=== PATIENT | male | born 1955 | race Caucasian/White ===

== ENCOUNTER 2016-12-09 06:00 | Inpatient (IN) | payer BC ==
[2016-12-04 10:13] LABS: ASCORBIC ACID (UR NOT ORDER) NEG (NEG); BILIRUBIN, URINE NEGATIVE (NEG); KETONE, URINE NEGATIVE (NEG); LEUKOCYTE ESTERASE(NOT OR NEG (NEG); WBC (NOT ORDERED) (RFLEX) < 1 (0-5)
[2016-12-04 10:22] LABS: % IRON SAT 23 % (20-50); A/G RATIO 0.9 (0.7-1.9); ALBUMIN 3.6 G/DL (3.5-5.0); ALKALINE PHOSPHATASE 79 U/L (45-117); CALCIUM, SERUM 9.1 MG/DL (8.5-10.4); CHLORIDE, SERUM 107 MMOL/L (96-112); CO2 (CARBON DIOXIDE) 26 MMOL/L (24-34); CREATININE 1.07 MG/DL (0.70-1.30); GFR AFRICAN AMERICAN 86 ML/MIN (>=60); GFR NON AFRICAN AMERICAN 75 ML/MIN (>=60); GLOBULIN 3.8 G/DL (2.5-4.1); GLUCOSE, SERUM 106 MG/DL (60-99); IRON BINDING CAPACITY 290 MCG/DL (250-450); IRON, SERUM 67 MCG/DL (35-150); POTASSIUM, SERUM 3.8 MMOL/L (3.5-5.3); SGOT(AST) 26 U/L (5-40); SGPT(ALT) 47 U/L (5-65); SODIUM, SERUM 139 MMOL/L (135-148); TOTAL BILIRUBIN 0.3 MG/DL (0-1.2); TOTAL PROTEIN 7.4 G/DL (6.0-8.5)
[2016-12-04 10:23] LABS: BUN (BLOOD UREA NITROGEN) 14 MG/DL (6-23)
--- NOTE | ~2016-12-09 | HOLTER ---
Holter Monitor [facility] [address] [facility] [place] [address] NAME: MERYL MYERS JR : 55 STATUS : DIS IN PAT#: [id number] AGE: 61 ADM/REG DATE : 12/09/16 MR#: [id number] REPORT SERV DATE: 12/21/16 DICTATED BY: CEM WILLIS DATE: 12/21/16 REPORT STATUS : Cancelled TRANSCRIBED BY: MODL DATE: 12/21/16 48-HOUR HOLTER MONITOR REPORT RESPONSIBLE PHYSICIAN: Farrukh Capellan M.D. INDICATIONS: A 61-year-old male with coronary artery disease. RECORDING QUALITY: Overall quality of the study is good. RHYTHM: Rhythm is sinus, which varies from 69 to 113 beats per minute with an average heart rate of 87 beats per minute. VENTRICULAR ARRHYTHMIA: There are rare PVCs. SUPRAVENTRICULAR ARRHYTHMIA: There are rare PACs. SYMPTOMS: No diary submitted. CONCLUSION: No significant symptoms noted. No significant dysrhythmia found. Please see attached worksheet for further details. Definitions for premature beat frequency Approximately Rare <100 <0.1 % Occasional 100-1500 0.1 - 1.5 % Frequent >1500 >1.5 % SILVESTRE/SHANE Cem Willis M.D. / [id number]
--- NOTE | ~2016-12-09 | CN ---
Consultation Report [facility] [address] [place]. [address] NAME: MERYL RAMOS JR : 55 STATUS : ADM IN PAT#: [id number] AGE: 61 ADM/REG DATE : 12/09/16 MR#: [id number] REPORT SERV DATE: 12/13/16 DICTATED BY: SABRA GOODE IV DATE: 12/13/16 REPORT STATUS : Draft TRANSCRIBED BY: SHANE DATE: 12/13/16 PULMONARY CONSULTATION. DATE OF CONSULTATION: 12/13/2016 REQUESTING PHYSICIAN: Farrukh Capellan M.D. REASON FOR REQUEST: Persistent postoperative hypoxemia. HISTORY OF PRESENT ILLNESS: History was obtained the records and from the patient. Mr. Ramos is a 61-year-old male, with a history of obstructive sleep apnea, obesity, hypertension, elevated cholesterol, and recently diagnosed coronary artery disease, who is status post robotic single vessel coronary bypass grafting, HARRIS to the LAD, with postoperative hypoxemia. The patient was undergoing preoperative evaluation for cervical spinal surgery. He underwent a nuclear medical scan which was abnormal, with subsequent catheterization demonstrating a 90% mid LAD lesion, and was felt to be a poor candidate for stenting. The patient underwent robotic single vessel coronary bypass grafting with HARRIS. Postoperatively, the patient has been persistently hypoxemic with chest radiograph demonstrating left greater than right basilar atelectasis/infiltrates. He has been slowly weaned on supplemental oxygen postoperatively 100%, now down to 60%, with some clinical improvement. The patient had no symptoms of a lower respiratory infection prior to presentation to include purulent sputum production, fevers, chills, sweats, or hemoptysis. He does currently have a cough productive of slightly yellowish phlegm. He was not on bronchitis medication nor is he on supplemental oxygen preoperatively. The patient carries a diagnosis of obstructive sleep apnea of unclear severity. He underwent UPPP surgery in the past. He reportedly does snore intermittently which is positional. He denies nonrestorative sleep with sedentary hypersomnolence. He never underwent a post surgical sleep study. PULMONARY HISTORY: Remarkable for no history of childhood asthma, known adult obstructive lung disease or previous pneumonia. He is a lifelong nonsmoker with no significant secondary smoke exposure. He has not received immunizations. PAST MEDICAL HISTORY: 1. Obstructive sleep apnea. 2. Obesity. 3. Hypertension. 4. Elevated cholesterol. 5. Coronary disease status post surgery. PAST SURGICAL HISTORY: 1. Left knee arthroscopy with meniscal surgery. 2. UPPP surgery. Consultation Report [place] [address] [place]. [address] NAME: MERYL RAMOS JR : 55 STATUS : ADM IN PAT#: [id number] AGE: 61 ADM/REG DATE : 12/09/16 MR#: [id number] REPORT SERV DATE: 12/13/16 DICTATED BY: SABRA GOODE IV DATE: 12/13/16 REPORT STATUS : Draft TRANSCRIBED BY: SHANE DATE: 12/13/16 3. TURP. 4. Robotic HARRIS to the LAD. ALLERGIES: NO KNOWN DRUG ALLERGIES. CURRENT MEDICATIONS: The patient is on Bactroban in his nose twice a day, Cordarone 200 mg at bedtime, Elavil 100 mg at bedtime, aspirin 81 mg daily, Lasix 40 mg daily, Lipitor 40 mg daily, Lopressor 25 mg twice a day, MiraLAX one daily, Orazinc 220 mg daily, Pepcid 20 mg twice a day, Plavix 75 mg daily, Proventil q.4 hours while awake and q.2 hours as needed, Senokot two twice a day, and vitamin C. SOCIAL HISTORY: Remarkable for no tobacco or illicit drug use. He has rare social alcohol use. He is and has two children. FAMILY HISTORY: Remarkable for father, who had an unspecified valvular disease. Mother with diabetes and breast cancer. A sister who had pulmonary embolism. REVIEW OF SYSTEMS: A 10 systems were reviewed and pertinent positives as noted above. PHYSICAL EXAMINATION: GENERAL: This is a morbidly obese, late middle-aged male, in no current distress. He is wearing a Vapotherm. VITAL SIGNS: Temperature is 96.8, pulse is 90, respiratory rate is 16, saturation 99% on the Vapotherm, and blood pressure 138/74. HEENT: The patient is normocephalic and atraumatic. Extraocular movements are intact. Pupils react to light. Sclerae and conjunctivae normal. He has a nasal cannula in place. He has a Mallampati 3 airway with postsurgical changes to the soft palate consistent with UPPP surgery. There is narrowing of the posterior pharyngeal space without any other oral lesions. NECK: Without any palpable lymphadenopathy or thyromegaly. He has a dressing over his right internal jugular site. CHEST: The patient has decreased breath sounds symmetrically. There are some basilar inspiratory crackles. There is no wheezes rhonchi or egophony. He has an incision site on his left side. CARDIOVASCULAR: Jugular venous pulsations are difficult to elicit. He has 1+ carotid upstrokes. No obvious bruit. He has a distant regular S1 and S2 with no clear murmur, S3. Peripheral pulses are slightly diminished. ABDOMEN: Morbidly obese. Soft. There are hypoactive bowel sounds. There is no palpable hepatosplenomegaly or mass. EXTREMITIES: Demonstrate no cyanosis clubbing or palpable cords. He has edema predominantly in his hands. NEUROLOGIC: The patient is able to move all extremities. Strength is 5/5 and sensation is intact to light touch. LABORATORY AND DIAGNOSTIC DATA: Chest x-ray demonstrates even duration and elevation of the Consultation Report [place] [address] [facility] [address] [place]. [address] NAME: MERYL RAMOS : 55 STATUS : ADM IN [facility]#: [id number] AGE: 61 ADM/REG DATE : 12/09/16 MR#: [id number] REPORT SERV DATE: 12/13/16 DICTATED BY: SABRA GOODE IV DATE: 12/13/16 REPORT STATUS : Draft TRANSCRIBED BY: SHANE DATE: 12/13/16 anterior and mid right hemidiaphragm which is old. He has left greater than right basilar infiltrate or atelectasis which is persisted postoperatively. He has some pleural thickening, apical and laterally likely from subcostal fat which is also old. CBC: Hemoglobin 12.1 hematocrit 35.2, platelet count was 225,000, and white blood cell count 11.1. Chemistry; sodium 142, potassium 3.9, chloride 104, bicarb 26, BUN 21, creatinine 0.77, glucose of 99. He had a hemoglobin A1c preoperatively that was 6.3. Blood gas was pH 7.35, pCO2 of 50, and PO2 of 64. ASSESSMENT/PLAN: 1. Respiratory. The patient has significant atelectasis infiltrate at the left greater than right base, it is the likely cause for his hypoxemia. This is likely just postoperative atelectasis contributed to by his obesity. Pulmonary toilet with incentive spirometry, and EzPAP with albuterol, oxygen to be titrated to maintain saturation at 90% to 94% range. We will decrease to 55% now continued to wean. The patient likely saw the component of obstructive sleep apnea. I would recommend an overnight oximetry before discharge. We did discuss the adverse cardiopulmonary effects of untreated sleep apnea. PCO2 is elevated and likely secondary obesity and hypoventilation syndrome, that will be followed. 2. Infectious disease. Sputum will be sent for Gram stain, culture, procalcitonin level be added to blood in the lab. I would not provide empiric antibiotics at this time. Pneumovax at the time of discharge. 3. Endocrinologic. Hemoglobin A1c was elevated preoperatively. clinical staff educator will be asked to come by for the borderline diabetes mellitus. With the hypercapnia, thyroid functions will be obtained. Thank you for consulting us. We will follow patient with you. NM/MODL Sabra Goode IV, M.D. / [id number] CC: Farrukh Capellan Jr., M.D.
--- NOTE | ~2016-12-09 | PUL ---
[id number] [place]. [address] NAME: MERYL MYERS JR : 55 STATUS : DIS IN PAT#: [id number] AGE: 61 ADM/REG DATE : 12/09/16 MR#: [id number] REPORT SERV DATE: 12/18/16 DICTATED BY: BRIEN DUTTON DATE: 12/18/16 REPORT STATUS : Draft TRANSCRIBED BY: MODL DATE: 12/18/16 PULMONARY FUNCTION TEST OVERNIGHT OXIMETRY REPORT START DATE OF TESTIN12/14/2016. END DATE OF TESTIN12/15/2016. COMMENTS: Testing conducted with the patient breathing supplemental oxygen at an FiO2 of 40%. RESULTS: Total valid sampling time 6 hours 6 minutes and 28 seconds. Total time with an oxygen saturation less than 88%, 3 hours and 54 minutes. Oxygen desaturation event index 3.9. IMPRESSION: There was no significant desaturation during this study conducted while the patient was breathing supplemental oxygen at an FiO2 of 40%. The oxygen desaturation index was not suspicious for possible obstructive sleep apnea. PS/MODL Brien Dutton M.D. / [id number] CC: Sydni Montgomery Jr., ANDERS EUGENE
--- NOTE | ~2016-12-09 | DS ---
Discharge Summary [facility] [address] [place]. [address] NAME: MERYL MYERS JR : 55 STATUS : DIS IN PAT#: [id number] AGE: 61 ADM/REG DATE : 12/09/16 MR#: [id number] REPORT SERV DATE: 12/26/16 DICTATED BY: ANGELA CAPELLAN JR. DATE: 12/25/16 REPORT STATUS : Draft TRANSCRIBED BY: SHANE DATE: 12/25/16 Data Collection from hospitalization DISCHARGE DIAGNOSES: 1. Coronary artery disease, status post coronary artery bypass grafting. 2. Hypertension. 3. Hypercholesterolemia. 4. Type 2 diabetes mellitus. 5. Morbid obesity. CONSULTATIONS: 1. Tate Goode M.D. 2. Catalino Morton M.D. PROCEDURES PERFORMED: Elective robotic assisted MIDCAB, left internal mammary artery to the left anterior descending, transesophageal echocardiogram, and intercostal nerve block on 12/09/2016. MEDICATIONS: Elavil 100 mg at bedtime, vitamin C 1000 mg daily, aspirin 81 mg daily, Lipitor 40 mg at bedtime, Plavix 75 mg daily, Lasix 40 mg daily, Prinivil 10 mg daily, Lopressor 12.5 mg twice a day, Percocet 5/325 one to two tablets every four hours as needed, and Klor- Con 20 mEq daily. CONDITION ON DISCHARGE: Stable. DISPOSITION: The patient was discharged home on an 1800-calorie cardiac/diabetic diet with activities as instructed. He will follow up with Dr. Shawn Townsend on 12/31/[address] Tate Goode in 3-4 weeks following discharge. He will follow up with md on 01/11/[address] Kevin Martínez on 01/06/2017. HOSPITAL COURSE: This is a 61-year-old man who has been complaining of numbness in the upper extremities related to cervical spine issues. He was being evaluated for a cervical spine surgery when he had an abnormal EKG. He also complained of significant dyspnea with any type of exercise. A nuclear stress test was positive which led to a cardiac catheterization demonstrating significant disease in the left anterior descending artery at the division of the first diagonal branch. There was also some mild disease in the right coronary artery. It was felt that he would benefit from HARRIS to the LAD prior to any surgical intervention for his cervical spine. Treatment options were discussed, and it was elected to proceed with surgical intervention. He was admitted to the hospital at this time for further evaluation and treatment. Upon admission, he was taken to the operating room where he underwent the above-mentioned procedure. He tolerated this well. There were no complications. On postop day #1, he was very sore, he was still on O2. He was seen by Dr. Catalino Morton. He was off pressors. He has been extubated. He was receiving high flow O2. He had no chest pain. On the , he had some shortness of breath and mild chest pain. He had been on increased O2 overnight. He had decreased breath sounds bilaterally. Blood pressure and heart rate were okay. We were going to increase his diuretic with IV Bumex. He was up sitting in a chair. O2 was Discharge Summary [address] [address] NAME: LUCIAMERYL JR : 55 STATUS : DIS IN PAT#: [id number] AGE: 61 ADM/REG DATE : 12/09/16 MR#: [id number] REPORT SERV DATE: 12/26/16 DICTATED BY: ANGELA CAPELLAN JR. DATE: 12/25/16 REPORT STATUS : Draft TRANSCRIBED BY: MODRachana DATE: 12/25/16 being weaned. On the , his temperature was 99.6. His wounds were clean, dry, and intact. He was on Vapotherm. He had no chest pain. He did have a white count of 12.6. Amiodarone was stopped. Medical therapy continued. On 12/13/2016, he continued to progress. He was seen by Dr. Tate Goode regarding persistent postoperative hypoxemia. He has no symptoms of a lower respiratory infection prior to presentation. He does have a productive cough of slightly yellowish phlegm. He had not been on bronchitis medication nor is he on supplemental oxygen preoperatively. He has been slowly weaned on supplemental oxygen postoperatively 100%, now down to 50% with some clinical improvement. Chest x-ray demonstrated even duration and elevation of the anterior and mid right hemidiaphragm which was old. He had left greater than right basilar infiltrate or atelectasis which persisted postoperatively. He had some pleural thickening, apical and laterally, likely from subcostal fast which was old. Preoperatively, his hemoglobin A1c was 6.3. The patient had significant atelectasis infiltrate at the left greater than right base which was likely the cause for his hypoxemia. This was likely just postoperative atelectasis contributed to by his obesity. Pulmonary toilet with incentive spirometry and EZ PAP with albuterol and oxygen to be titrated to maintain saturation at 90- 94%. It was felt that the patient likely saw a component of obstructive sleep apnea. An overnight oximetry study was recommended. We discussed the adverse cardiopulmonary effects of untreated sleep apnea. PCO2 was elevated and likely secondary to obesity and hypoventilation syndrome. This was going to be followed. Sputum was sent for Gram stain, culture, and procalcitonin level was going to be added to blood in the lab. We were not going to start empiric antibiotics at this time. Pneumovax will be given at the time of discharge. It was felt that he had borderline diabetes mellitus. On 12/14/2016, he still had some shortness of breath but O2 requirement had decreased. He had crackles in his left lung base. Diuresis was increased. He denied any dyspnea at this time. He was ambulating in the halls. He was anxious to go home. He had no evidence of infection. White count was 10.7. Procalcitonin level was 0.08. He was evaluated by Physical Therapy. The next day, a dose of IV Bumex was given, then he was placed on oral Lasix. AMY inhibitor was added back. Discharge planning was performed. On 12/16/2016, he was afebrile; his wounds were clean, dry, and intact; he said he felt great. He was found to have nonsustained ventricular tachycardia on telemetry. Discharge instructions were given. Due to his improved and stable condition, he was discharged home with the above-stated instructions. Information collected by: Lorena Yeager I submit the above information as my discharge summary. TG/MODL Angela Capellan Jr., M.D. / [id number] CC: Angela Capellan Jr., M.D. [facility] Discharge Summary [address] [address] NAME: LUCIAMERYL JR : 55 STATUS : DIS IN PAT#: [id number] AGE: 61 ADM/REG DATE : 12/09/16 MR#: [id number] REPORT SERV DATE: 12/26/16 DICTATED BY: ANGELA CAPELLAN JR. DATE: 12/25/16 REPORT STATUS : Draft TRANSCRIBED BY: MODL DATE: 12/25/16 Dr. Aashish Morton M.D.
--- NOTE | ~2016-12-09 | OP ---
Record Of Operation [facility] [address] [place]. [address] NAME: MERYL MYERS JR : 55 STATUS : ADM IN PAT#: [id number] AGE: 61 ADM/REG DATE : 12/09/16 MR#: [id number] REPORT SERV DATE: 12/09/16 DICTATED BY: ANGELA CAPELLAN JR. DATE: 12/09/16 REPORT STATUS : Draft TRANSCRIBED BY: MODL DATE: 12/09/16 DATE OF PROCEDURE: 12/09/2016 PREOPERATIVE DIAGNOSES: Coronary artery disease, angina, cervical spinal stenosis, increased body mass index, and hypertension. POSTOPERATIVE DIAGNOSES: Coronary artery disease, angina, cervical spinal stenosis, increased body mass index, and hypertension. NAME OF OPERATION: Elective robotic assisted MIDCAB, left internal mammary artery to the left anterior descending, transesophageal echocardiogram, intercostal nerve block. SURGEON: Angela Capellan Jr., M.D. LOGGING RAFTER LABORER: Won Cassidy. RESIDENT SURGEON: Dr. Jose G Canas. ANESTHESIOLOGIST: Jesse Purvis. FINDINGS: On transesophageal echocardiogram, the patient was noted to have central aortic insufficiency. The leaflets were normal and had no sclerosis. The aortic insufficiency appeared at least mild and possibly moderate. The left ventricle is not dilated. There was mild mitral regurgitation. There is normal left ventricular function. His pulmonary artery pressures were elevated in the 50s which was felt likely secondary to his obesity. Exposure was difficult during the case secondary to obesity. There was little room to work in the chest even with insufflation. We were able to find the left internal mammary artery and dissected out as well as the left anterior descending artery. There was significant amount of epicardial fat on the heart but we were able to locate the vessel that matched size-dawson in location with the left anterior descending artery. Post bypass, the Doppler signals were excellent. DETAILS OF OPERATION: After adequate general anesthesia, the patient was intubated with a left-sided double-lumen endotracheal tube. A transesophageal echocardiogram was performed with the above findings noted. The patient was then positioned in the supine position with the left chest elevated. His neck, chest, abdomen, and extremities were prepped and draped in a routine sterile fashion. A single mid lateral left chest trocar incision was made followed by introducing of the trocar into the chest cavity. The camera was introduced. Visualization was limited secondary to his obesity and the lack of space within the chest cavity. Even with insufflating 10 cm of pressure, we had limited visualization. The heart was up against the chest wall. Two additional trocars were placed under direct visualization. The da Ro was docked, followed by placement of instruments under direct visualization. The left internal mammary artery was then dissected in the standard fashion. We had to move intercostal spaces with both the upper and the camera trocar just to be able to see from the upper part of the chest to the lower part of the chest. Pericardium was then opened where the vessel was identified. Again there was extensive amount of epicardial Record Of Operation [place] [id number] [facility] [place]. [address] NAME: LUCIAMERYL : 55 STATUS : ADM IN [facility]#: [id number] AGE: 61 ADM/REG DATE : 12/09/16 MR#: [id number] REPORT SERV DATE: 12/09/16 DICTATED BY: ANGELA CAPELLAN JR. DATE: 12/09/16 REPORT STATUS : Draft TRANSCRIBED BY: SHANE DATE: 12/09/16 fat, so it took us quite a while to locate the left anterior descending artery and be certain about it. The MIDCAB incision was then marked on the anterior chest wall. The instruments were then removed. Prior to that, the left internal mammary artery had been divided and secured next to the anastomotic site after giving heparin. The da Ro was then undocked. The MIDCAB incision was then made with the dissection carried down into the chest cavity. The rib shot dropper was placed. The stabilizing device was positioned on the left anterior descending artery. After a trial of ischemic preconditioning, the patient appeared to tolerate this well. We then performed an end-to-side anastomosis using 8-0 Deklene suture. The pedicle was secured with 6-0 Prolene sutures. Prior to releasing proximal occlusion, the left internal mammary artery had excellent Doppler signals. After releasing proximal occlusion, it still had excellent Doppler signals. Protamine was administered. A left-sided pleural chest tube was placed. Epicardial fat was placed over the graft. The MIDCAB incision was then closed in multiple layers using running Vicryl suture. The skin was closed with running monofilament suture. The trocar sites were closed in a similar fashion. Dermabond dressings were applied. The patient tolerated the procedure well and taken back to the recovery room in stable condition. ALEXEI/SHANE Angela Capellan Jr., M.D. / [id number] CC: Sydni Montgomery Jr., MD [facility]
[~2016-12-09 06:00] MED LIST: AMIT100 PO; HALF81 PO; LIPITOR40 PO; NORV10 PO; PRINZIDE1 TA1 PO
[2016-12-09 15:00] LABS: BE (BASE EXCESS) -0.7 MEQ/L (0 +/- 2.5); CARBOXYHEMOGLOBIN 0.3 % (0-3); HCO3 (ACTUAL BICARBONATE) 25.3 MEQ/L (23-27); HEMOBLOGIN CONTENT 13.5 G/DL (14-18); INSTRUMENT SERIAL # 11843; METHEMOGLOBIN 0.4 % (0-3); MODE SIMV; O2 CONTENT 17.8 VOL% (18-24); OPERATOR ID 13624; PCO2 (CO2 TENSION) 47 MMHG (35-45); PO2 (O2 TENSION) 79 MMHG (79-93); SAMPLE Arterial; TIDAL VOLUME 800 ML; pH 7.35 (7.37-7.43)
[2016-12-09 15:26] LABS: HEMOGLOBIN 12.3 g/dL (13.6-17.8); PLATELET COUNT 214 10/3/uL (150-400)
[2016-12-09 15:28] LABS: HEMATOCRIT 37.1 % (40.0-51.0)
[2016-12-09 15:32] LABS: INTERNATIONAL NORMAL RATI 1.2 UNITS (-); PARTIAL THROMBO TIME 29.2 SEC (22.5-37.2)
[2016-12-09 15:36] LABS: PROTIME (NOT ORD) 15.2 SEC (12.0-14.5)
[2016-12-09 15:38] LABS: CHLORIDE, SERUM 109 MMOL/L (96-112); CO2 (CARBON DIOXIDE) 25 MMOL/L (24-34); GFR AFRICAN AMERICAN 75 ML/MIN (>=60); GFR NON AFRICAN AMERICAN 65 ML/MIN (>=60); POTASSIUM, SERUM 4.5 MMOL/L (3.5-5.3); SODIUM, SERUM 144 MMOL/L (135-148)
[2016-12-09 15:39] LABS: BUN (BLOOD UREA NITROGEN) 18 MG/DL (6-23); CALCIUM, SERUM 7.9 MG/DL (8.5-10.4); GLUCOSE, SERUM 178 MG/DL (60-99)
[2016-12-09 15:41] LABS: BE (BASE EXCESS) -0.1 MEQ/L (0 +/- 2.5); CARBOXYHEMOGLOBIN 0.3 % (0-3); HCO3 (ACTUAL BICARBONATE) 25.5 MEQ/L (23-27); HEMOBLOGIN CONTENT 13.7 G/DL (14-18); INSTRUMENT SERIAL # 11843; METHEMOGLOBIN 0.6 % (0-3); MODE SIMV; O2 CONTENT 19.3 VOL% (18-24); OPERATOR ID 13624; PCO2 (CO2 TENSION) 45 MMHG (35-45); PO2 (O2 TENSION) 199 MMHG (79-93); SAMPLE Arterial; TIDAL VOLUME 900 ML; pH 7.37 (7.37-7.43)
[2016-12-09 18:16] LABS: BE (BASE EXCESS) -2.9 MEQ/L (0 +/- 2.5); CARBOXYHEMOGLOBIN 0.3 % (0-3); DEVICE HFNC; HCO3 (ACTUAL BICARBONATE) 23.2 MEQ/L (23-27); HEMOBLOGIN CONTENT 13.4 G/DL (14-18); INSTRUMENT SERIAL # 11843; METHEMOGLOBIN 0.5 % (0-3); O2 CONTENT 17.1 VOL% (18-24); OPERATOR ID 13624; PCO2 (CO2 TENSION) 45 MMHG (35-45); PO2 (O2 TENSION) 66 MMHG (79-93); SAMPLE Arterial; pH 7.33 (7.37-7.43)
[2016-12-09 22:12] LABS: HEMATOCRIT 36.1 % (40.0-51.0); HEMOGLOBIN 11.8 g/dL (13.6-17.8)
[2016-12-09 22:16] LABS: BUN (BLOOD UREA NITROGEN) 18 MG/DL (6-23); CALCIUM, SERUM 7.9 MG/DL (8.5-10.4); CHLORIDE, SERUM 110 MMOL/L (96-112); CO2 (CARBON DIOXIDE) 26 MMOL/L (24-34); CREATININE 1.05 MG/DL (0.70-1.30); GFR AFRICAN AMERICAN 88 ML/MIN (>=60); GFR NON AFRICAN AMERICAN 76 ML/MIN (>=60); POTASSIUM, SERUM 4.3 MMOL/L (3.5-5.3); SODIUM, SERUM 144 MMOL/L (135-148)
[2016-12-09 22:17] LABS: GLUCOSE, SERUM 88 MG/DL (60-99)
[2016-12-10 03:37] LABS: BASOPHILS 0.1 %; BASOPHILS ABSOLUTE 0.01 10/3/uL (0.0-0.16); EOSINOPHILS 0 %; HEMATOCRIT 37.1 % (40.0-51.0); HEMOGLOBIN 12.2 g/dL (13.6-17.8); IMMATURE GRANULOCYTES 0.3 %; IMMATURE GRANULOCYTES ABSOLUTE 0.05 10/3/uL (0.0-0.11); LYMPHOCYTES 5.6 %; LYMPHOCYTES ABSOLUTE 1.02 10/3/uL (0.67-4.30); MANUAL DIFF NO %; MEAN CORPUS HGB CONC 32.9 g/dL (32.0-36.0); MEAN CORPUSCULAR HEMOGLOB 29.1 pg (26.0-34.0); MEAN CORPUSCULAR VOLUME 88.5 fL (80-100); MEAN PLATELET VOLUME 9.4 fL (9.2-13.0); MONOCYTES 11.2 %; MONOCYTES ABSOLUTE 2.04 10/3/uL (0.21-1.20); NEUTROPHILS 82.8 %; NEUTROPHILS ABSOLUTE 15.02 10/3/uL (2.02-8.40); PLATELET COUNT 222 10/3/uL (150-400); RBC DISTRIBUTION WIDTH 14.2 % (12.0-16.0); RED CELL COUNT 4.19 10/6/uL (4.7-6.1); WHITE BLOOD CELLS 18.1 10/3/uL (4.5-10.5)
[2016-12-10 03:44] LABS: BUN (BLOOD UREA NITROGEN) 20 MG/DL (6-23); CALCIUM, SERUM 7.9 MG/DL (8.5-10.4); CHLORIDE, SERUM 110 MMOL/L (96-112); CO2 (CARBON DIOXIDE) 26 MMOL/L (24-34); CREATININE 1.04 MG/DL (0.70-1.30); GFR AFRICAN AMERICAN 89 ML/MIN (>=60); GFR NON AFRICAN AMERICAN 77 ML/MIN (>=60); POTASSIUM, SERUM 4.7 MMOL/L (3.5-5.3); SODIUM, SERUM 142 MMOL/L (135-148)
[2016-12-10 03:49] LABS: GLUCOSE, SERUM 122 MG/DL (60-99)
[2016-12-11 05:09] LABS: HEMATOCRIT 37.2 % (40.0-51.0); HEMOGLOBIN 12.2 g/dL (13.6-17.8); MEAN CORPUS HGB CONC 32.8 g/dL (32.0-36.0); MEAN CORPUSCULAR HEMOGLOB 29.5 pg (26.0-34.0); MEAN CORPUSCULAR VOLUME 90.1 fL (80-100); PLATELET COUNT 246 10/3/uL (150-400); RBC DISTRIBUTION WIDTH 14.8 % (12.0-16.0); RED CELL COUNT 4.13 10/6/uL (4.7-6.1); WHITE BLOOD CELLS 19.6 10/3/uL (4.5-10.5)
[2016-12-11 05:15] LABS: MANUAL DIFF YES %
[2016-12-11 05:17] LABS: CALCIUM, SERUM 8.3 MG/DL (8.5-10.4); CHLORIDE, SERUM 101 MMOL/L (96-112); CO2 (CARBON DIOXIDE) 27 MMOL/L (24-34); CREATININE 1.48 MG/DL (0.70-1.30); GFR AFRICAN AMERICAN 58 ML/MIN (>=60); GFR NON AFRICAN AMERICAN 50 ML/MIN (>=60); GLUCOSE, SERUM 136 MG/DL (60-99); POTASSIUM, SERUM 5.2 MMOL/L (3.5-5.3); SODIUM, SERUM 136 MMOL/L (135-148)
[2016-12-11 05:21] LABS: BE (BASE EXCESS) 0.3 MEQ/L (0 +/- 2.5); CARBOXYHEMOGLOBIN 0.3 % (0-3); DEVICE HFNC; HCO3 (ACTUAL BICARBONATE) 26.6 MEQ/L (23-27); HEMOBLOGIN CONTENT 12.7 G/DL (14-18); INSTRUMENT SERIAL # 11843; METHEMOGLOBIN 0.5 % (0-3); O2 CONTENT 16.4 VOL% (18-24); PCO2 (CO2 TENSION) 50 MMHG (35-45); PO2 (O2 TENSION) 64 MMHG (79-93); SAMPLE Arterial; pH 7.35 (7.37-7.43)
[2016-12-11 05:22] LABS: ALLENS TEST Pos
[2016-12-11 05:24] LABS: BUN (BLOOD UREA NITROGEN) 33 MG/DL (6-23)
[2016-12-11 06:05] LABS: BAND NEUTROPHILS 2 %; LYMPHOCYTES 10 %; LYMPHOCYTES ABSOLUTE (CALC) 1.96 10/3/uL (0.67-4.30); METAMYELOCYTES 1 %; MONOCYTES 12 %; MONOCYTES ABSOLUTE (CALC) 2.35 10/3/uL (0.21-1.20); NEUTROPHILS ABSOLUTE (CALC) 15.09 10/3/uL (2.02-8.40); PLATELET ESTIMATE ADQ (ADEQUATE); RBC MORPHOLOGY NORM (NORMAL); SEGMENTED NEUTROPHIL (0) 75 %; TOTAL NUCLEATED CELLS 100
[2016-12-11 11:38] LABS: POTASSIUM, SERUM 4.3 MMOL/L (3.5-5.3)
[2016-12-11 18:34] LABS: POTASSIUM, SERUM 4.2 MMOL/L (3.5-5.3)
[2016-12-12 10:12] LABS: BASOPHILS 0.1 %; BASOPHILS ABSOLUTE 0.01 10/3/uL (0.0-0.16); EOSINOPHILS 0.4 %; EOSINOPHILS ABSOLUTE 0.05 10/3/uL (0.0-0.53); HEMATOCRIT 35.1 % (40.0-51.0); HEMOGLOBIN 11.8 g/dL (13.6-17.8); IMMATURE GRANULOCYTES 0.2 %; IMMATURE GRANULOCYTES ABSOLUTE 0.03 10/3/uL (0.0-0.11); LYMPHOCYTES 12.1 %; LYMPHOCYTES ABSOLUTE 1.53 10/3/uL (0.67-4.30); MANUAL DIFF NO %; MEAN CORPUS HGB CONC 33.6 g/dL (32.0-36.0); MEAN CORPUSCULAR HEMOGLOB 29.8 pg (26.0-34.0); MEAN CORPUSCULAR VOLUME 88.6 fL (80-100); MEAN PLATELET VOLUME 9.3 fL (9.2-13.0); MONOCYTES 12.8 %; MONOCYTES ABSOLUTE 1.61 10/3/uL (0.21-1.20); NEUTROPHILS 74.4 %; NEUTROPHILS ABSOLUTE 9.39 10/3/uL (2.02-8.40); PLATELET COUNT 195 10/3/uL (150-400); RBC DISTRIBUTION WIDTH 14.4 % (12.0-16.0); RED CELL COUNT 3.96 10/6/uL (4.7-6.1); WHITE BLOOD CELLS 12.6 10/3/uL (4.5-10.5)
[2016-12-12 10:22] LABS: CALCIUM, SERUM 8.4 MG/DL (8.5-10.4); CHLORIDE, SERUM 103 MMOL/L (96-112); CO2 (CARBON DIOXIDE) 28 MMOL/L (24-34); GFR AFRICAN AMERICAN 94 ML/MIN (>=60); GFR NON AFRICAN AMERICAN 81 ML/MIN (>=60); GLUCOSE, SERUM 114 MG/DL (60-99); POTASSIUM, SERUM 4.1 MMOL/L (3.5-5.3); SODIUM, SERUM 138 MMOL/L (135-148)
[2016-12-12 10:23] LABS: BUN (BLOOD UREA NITROGEN) 27 MG/DL (6-23)
[2016-12-13 06:39] LABS: BASOPHILS 0.1 %; BASOPHILS ABSOLUTE 0.01 10/3/uL (0.0-0.16); EOSINOPHILS 1.8 %; HEMATOCRIT 35.2 % (40.0-51.0); HEMOGLOBIN 12.1 g/dL (13.6-17.8); IMMATURE GRANULOCYTES 0.3 %; IMMATURE GRANULOCYTES ABSOLUTE 0.03 10/3/uL (0.0-0.11); LYMPHOCYTES 10.3 %; LYMPHOCYTES ABSOLUTE 1.14 10/3/uL (0.67-4.30); MEAN CORPUS HGB CONC 34.4 g/dL (32.0-36.0); MEAN CORPUSCULAR HEMOGLOB 29.9 pg (26.0-34.0); MEAN CORPUSCULAR VOLUME 86.9 fL (80-100); MEAN PLATELET VOLUME 9.5 fL (9.2-13.0); MONOCYTES 13.8 %; MONOCYTES ABSOLUTE 1.52 10/3/uL (0.21-1.20); NEUTROPHILS 73.7 %; NEUTROPHILS ABSOLUTE 8.15 10/3/uL (2.02-8.40); PLATELET COUNT 225 10/3/uL (150-400); RBC DISTRIBUTION WIDTH 14.5 % (12.0-16.0); RED CELL COUNT 4.05 10/6/uL (4.7-6.1); WHITE BLOOD CELLS 11.1 10/3/uL (4.5-10.5)
[2016-12-13 06:41] LABS: MANUAL DIFF NO %
[2016-12-13 06:48] LABS: BUN (BLOOD UREA NITROGEN) 21 MG/DL (6-23); CALCIUM, SERUM 8.4 MG/DL (8.5-10.4); CHLORIDE, SERUM 104 MMOL/L (96-112); CO2 (CARBON DIOXIDE) 26 MMOL/L (24-34); CREATININE 0.77 MG/DL (0.70-1.30); GFR AFRICAN AMERICAN 114 ML/MIN (>=60); GFR NON AFRICAN AMERICAN 98 ML/MIN (>=60); GLUCOSE, SERUM 99 MG/DL (60-99); POTASSIUM, SERUM 3.9 MMOL/L (3.5-5.3); SODIUM, SERUM 142 MMOL/L (135-148)
[2016-12-13 17:39] LABS: FREE T4 1.08 NG/DL (0.76-1.46); PHOSPHORUS, SERUM 2.7 MG/DL (2.5-4.5)
[2016-12-13 18:11] LABS: PROCALCITONIN 0.08 ng/mL (<0.5)
[2016-12-14 06:41] LABS: BASOPHILS 0.1 %; BASOPHILS ABSOLUTE 0.01 10/3/uL (0.0-0.16); EOSINOPHILS 3.2 %; EOSINOPHILS ABSOLUTE 0.34 10/3/uL (0.0-0.53); HEMATOCRIT 35.1 % (40.0-51.0); HEMOGLOBIN 11.9 g/dL (13.6-17.8); IMMATURE GRANULOCYTES 0.4 %; IMMATURE GRANULOCYTES ABSOLUTE 0.04 10/3/uL (0.0-0.11); LYMPHOCYTES 13.6 %; LYMPHOCYTES ABSOLUTE 1.46 10/3/uL (0.67-4.30); MEAN CORPUS HGB CONC 33.9 g/dL (32.0-36.0); MEAN CORPUSCULAR HEMOGLOB 29.7 pg (26.0-34.0); MEAN CORPUSCULAR VOLUME 87.5 fL (80-100); MEAN PLATELET VOLUME 9.2 fL (9.2-13.0); MONOCYTES 15.7 %; MONOCYTES ABSOLUTE 1.68 10/3/uL (0.21-1.20); PLATELET COUNT 232 10/3/uL (150-400); RBC DISTRIBUTION WIDTH 14.3 % (12.0-16.0); RED CELL COUNT 4.01 10/6/uL (4.7-6.1); WHITE BLOOD CELLS 10.7 10/3/uL (4.5-10.5)
[2016-12-14 06:43] LABS: MANUAL DIFF NO %
[2016-12-14 06:49] LABS: BUN (BLOOD UREA NITROGEN) 23 MG/DL (6-23); CALCIUM, SERUM 8.4 MG/DL (8.5-10.4); CHLORIDE, SERUM 105 MMOL/L (96-112); CREATININE 0.98 MG/DL (0.70-1.30); GFR AFRICAN AMERICAN 96 ML/MIN (>=60); GFR NON AFRICAN AMERICAN 83 ML/MIN (>=60); GLUCOSE, SERUM 110 MG/DL (60-99); POTASSIUM, SERUM 4.6 MMOL/L (3.5-5.3); SODIUM, SERUM 145 MMOL/L (135-148)
[2016-12-14 06:50] LABS: CO2 (CARBON DIOXIDE) 31 MMOL/L (24-34)
[2016-12-14 16:52] LABS: BUN (BLOOD UREA NITROGEN) 24 MG/DL (6-23); CALCIUM, SERUM 8.8 MG/DL (8.5-10.4); CHLORIDE, SERUM 106 MMOL/L (96-112); CO2 (CARBON DIOXIDE) 27 MMOL/L (24-34); CREATININE 0.89 MG/DL (0.70-1.30); GFR AFRICAN AMERICAN 107 ML/MIN (>=60); GFR NON AFRICAN AMERICAN 92 ML/MIN (>=60); GLUCOSE, SERUM 99 MG/DL (60-99); POTASSIUM, SERUM 4.2 MMOL/L (3.5-5.3); SODIUM, SERUM 143 MMOL/L (135-148)
[2016-12-15 07:27] LABS: BASOPHILS 0.1 %; BASOPHILS ABSOLUTE 0.01 10/3/uL (0.0-0.16); EOSINOPHILS 4.1 %; EOSINOPHILS ABSOLUTE 0.39 10/3/uL (0.0-0.53); HEMATOCRIT 37.3 % (40.0-51.0); HEMOGLOBIN 12.7 g/dL (13.6-17.8); IMMATURE GRANULOCYTES 0.6 %; IMMATURE GRANULOCYTES ABSOLUTE 0.06 10/3/uL (0.0-0.11); LYMPHOCYTES 17.5 %; LYMPHOCYTES ABSOLUTE 1.66 10/3/uL (0.67-4.30); MEAN CORPUSCULAR HEMOGLOB 29.4 pg (26.0-34.0); MEAN CORPUSCULAR VOLUME 86.3 fL (80-100); MEAN PLATELET VOLUME 8.9 fL (9.2-13.0); MONOCYTES ABSOLUTE 1.14 10/3/uL (0.21-1.20); NEUTROPHILS 65.7 %; NEUTROPHILS ABSOLUTE 6.23 10/3/uL (2.02-8.40); PLATELET COUNT 242 10/3/uL (150-400); RBC DISTRIBUTION WIDTH 14.4 % (12.0-16.0); RED CELL COUNT 4.32 10/6/uL (4.7-6.1); WHITE BLOOD CELLS 9.5 10/3/uL (4.5-10.5)
[2016-12-15 07:28] LABS: MANUAL DIFF NO %
[2016-12-15 07:37] LABS: BUN (BLOOD UREA NITROGEN) 24 MG/DL (6-23); CALCIUM, SERUM 8.7 MG/DL (8.5-10.4); CHLORIDE, SERUM 102 MMOL/L (96-112); CO2 (CARBON DIOXIDE) 30 MMOL/L (24-34); CREATININE 0.98 MG/DL (0.70-1.30); GFR AFRICAN AMERICAN 96 ML/MIN (>=60); GFR NON AFRICAN AMERICAN 83 ML/MIN (>=60); GLUCOSE, SERUM 107 MG/DL (60-99); SODIUM, SERUM 142 MMOL/L (135-148)
[2016-12-16 05:32] LABS: CHLORIDE, SERUM 104 MMOL/L (96-112); CO2 (CARBON DIOXIDE) 30 MMOL/L (24-34); CREATININE 1.09 MG/DL (0.70-1.30); GFR AFRICAN AMERICAN 84 ML/MIN (>=60); GFR NON AFRICAN AMERICAN 73 ML/MIN (>=60); GLUCOSE, SERUM 107 MG/DL (60-99); POTASSIUM, SERUM 4.1 MMOL/L (3.5-5.3); SODIUM, SERUM 141 MMOL/L (135-148)
[2016-12-16 05:36] LABS: BUN (BLOOD UREA NITROGEN) 31 MG/DL (6-23)
[2016-12-16] MEDS ORDERED: VITC500 PO (09:14)
[2016-12-16] MEDS ORDERED: PLAVIX PO (09:16)
[2016-12-16] MEDS ORDERED: L40 PO (09:17)
[2016-12-16] MEDS ORDERED: LOP25 PO (09:17)
[2016-12-16] MEDS ORDERED: PRIN10 PO (09:18)
[2016-12-16] MEDS ORDERED: KLOR-CON M2020 MEQ PO (09:18)
[2016-12-16] MEDS ORDERED: PCET PO (09:19)
== END 2016-12-16 16:55 | disposition home or self-care (01) | DRG 235 ==
LOC: SDC/OF 06:00 → CVICU 13:19 → 5NO 12-12 15:34
PROVIDERS: Internal Medicine Cardiovascular Disease; Nurse Practitioner Acute Care; Thoracic Surgery (Cardiothoracic Vascular Surgery)
PROC: B246ZZ4 Ultrasonography of Right and Left Heart, Transesophageal (ICD-10-PCS; 2016-12-09)
PROC: 3E0T3CZ (ICD-10-PCS; 2016-12-09)
PROC: 8E0W0CZ Robotic Assisted Procedure of Trunk Region, Open Approach (ICD-10-PCS; 2016-12-09)
PROC: 0210099 Bypass Coronary Artery, One Artery from Left Internal Mammary with Autologous Venous Tissue, Open Approach (ICD-10-PCS; principal; 2016-12-09 07:30)
PROC: 5A1221Z Performance of Cardiac Output, Continuous (ICD-10-PCS; 2016-12-09 07:30)
DX: I25.110 Atherosclerotic heart disease of native coronary artery with unstable angina pectoris (principal); J95.821 Acute postprocedural respiratory failure; Z68.42 Body mass index [BMI] 45.0-49.9, adult; E66.01 Morbid (severe) obesity due to excess calories; M48.02 Spinal stenosis, cervical region; I10 Essential (primary) hypertension; G47.33 Obstructive sleep apnea (adult) (pediatric); E78.5 Hyperlipidemia, unspecified; Y83.2 Surgical operation with anastomosis, bypass or graft as the cause of abnormal reaction of the patient, or of later complication, without mention of misadventure at the time of the procedure; Y92.239 Unspecified place in hospital as the place of occurrence of the external cause
CPT/HCPCS: 36415; 71010; 71020; 80048; 80053; 81001; 82330; 82803; 82805; 82947; 82962; 83036; 83540; 83550; 83735; 84100; 84132; 84145; 84295; 84439; 84443; 85014; 85018; 85025; 85049; 85347; 85610; 85730; 86850; 86900; 86901; 86920; 87205; 87641; 90732; 93005; 93225; 93226; 93312; 93320; 93325; 94002; 94640; 94660; 94667; 94668; 94762; 94770; A9270-GY; C1769; C1781; C1894; G0009; J0690; J1644; J1885; J2250; J2370; J2405; J2440; J2720; J2795; J3010; J3370; J3475; P9045

== ENCOUNTER 2017-01-07 21:15 | Inpatient (IN) | payer BC ==
--- NOTE | ~2017-01-07 | HP ---
History And Physical [id number] [place]. [address] NAME: MERYL MYERS JR : 55 STATUS : ADM IN PAT#: [id number] AGE: 61 ADM/REG DATE : 01/07/17 MR#: [id number] REPORT SERV DATE: 01/08/17 DICTATED BY: DAKOTA MARCELO DATE: 01/07/17 REPORT STATUS : Draft TRANSCRIBED BY: MODL DATE: 01/07/17 DATE OF ADMISSION: 01/07/2017 CHIEF COMPLAINT: Shortness of breath. HISTORY OF PRESENT ILLNESS: The patient is a 61-year-old male with past medical history of obesity, hypertension, hyperlipidemia, recent HI and subsequent robotic CABG, HARRIS to LAD by Dr. Capellan approximately one month ago who over the last four to five days although he has been doing well has noticed that he has had more dyspnea with exertion, decreased exercise tolerance, and difficulty with lying horizontally when he is going to rest requiring approximately at least 45 degree angle elevation and almost at times 90 degrees in a recliner. Symptoms have been constant, moderate severity without any pain or radiating symptoms. He does have cough but no diarrhea, nausea, vomiting, or headaches. Symptoms are worsened as noted above with exertion and lying down, relieved by sitting up. Symptoms are still currently present and reproducible. REVIEW OF SYSTEMS: Additional ten point review of systems negative except for that noted in the HPI. PAST MEDICAL HISTORY: Obstructive sleep apnea and currently being worked up for CPAP as an outpatient. Obesity, hypertension, hyperlipidemia, coronary artery disease status post surgery. SURGICAL HISTORY: Left knee arthroscopy with meniscal surgery. UPPP surgery, TURP, robotic HARRIS to LAD by Dr. Capellan. ALLERGIES: NO KNOWN DRUG ALLERGIES. SOCIAL HISTORY: No smoking or illicits but rare alcohol. and accompanied by at bedside who also has medical issues. FAMILY HISTORY: Remarkable for diabetes and breast cancer. Sister had PE. ALLERGIES: NO KNOWN DRUG ALLERGIES. HOME MEDICATIONS: Elavil, vitamin C, aspirin, Lipitor, Plavix, Lasix, Advil, Levaquin, Prinivil, metoprolol, Percocet, potassium. DIAGNOSTIC DATA: EKG; sinus tachycardia, incomplete right bundle rate of 105, QTc 462. The patient has noted right bundle in prior EKG on 12/12/2016. PHYSICAL EXAMINATION: VITAL SIGNS: The patient's blood pressure 165/83, heart rate 104, respiratory rate 16, O2 sats 100% on room air. GENERAL: No acute distress except when lying down. Well developed, well nourished. EYES: No scleral icterus. EOMI. History And Physical [address] [address] NAME: MERYL MYERS JR : 55 STATUS : ADM IN PAT#: [id number] AGE: 61 ADM/REG DATE : 01/07/17 MR#: [id number] REPORT SERV DATE: 01/08/17 DICTATED BY: DAKOTA MARCELO DATE: 01/07/17 REPORT STATUS : Draft TRANSCRIBED BY: SHANE DATE: 01/07/17 ENT: Nares patent. Tongue midline. Moist mucous membranes. RESPIRATORY: Decreased lung sounds in bilateral lung chase with dullness to tympany lower lung chase, left greater than right. CHEST: Equal chest expansion. CV: Regular rate. Mild distant heart sounds but bounding pulse with trace to 1+ edema bilaterally. GI: Soft, nontender, nondistended. Central obesity. : Deferred. MUSCULOSKELETAL: Moves all extremities x4. SKIN: Warm and dry. LYMPH: No cervical or supraclavicular lymphadenopathy. NEURO: Alert and oriented, moves all extremities x4. PSYCH: Appropriate mood and affect, pleasant. LABS: BNP 41.1. CMP grossly within normal limits with alkaline phosphatase of 181, albumin 3.0, globulin 4.6, troponin negative. LFTs negative. BUN creatinine 14 and 0.87, potassium 3.8, sodium 138. CBC: WBC count 11.4 and H and H 11.4 and 34.2, platelets 293. Portable chest; new left pleural effusion and left basilar consolidation. Persistent elevation of the right diaphragm and right basilar atelectasis. ASSESSMENT AND PLAN: 1. Pleural effusion. 2. Recent robotic surgery for coronary artery disease status post CABG. 3. Obesity. 4. Possible or likely obstructive sleep apnea. 5. Right diaphragm elevation. 6. Hypertension. 7. Hyperlipidemia. 8. Right bundle branch block, seen in prior EKGs. PLAN: 1. For pleural effusions, the patient is on diuretic, BNP within normal limits. Consult CT surgery. The patient recently did have CABG. ER has discussed with Radiology, amenable to thoracentesis. We will have repeat imaging in a.m. for evaluation for Dr. Farrukh Capellan's team and if required thoracentesis in a.m., we will defer to Dr. Capellan's team IR versus CT surgery if required. 2. Recent robotic surgery, coronary artery disease status post CABG, has been compliant with medications. 3. Obesity, diet exercise. 4. Possible, likely PRISCILLA, has had followup for sleep apnea. Possible CPAP, has appointment on Wednesday for evaluation and results. 5. Elevated right diaphragm per CT surgery. 6. Hypertension. Lisinopril, beta-thiago. 7. Hyperlipidemia, statin. 8. Right bundle branch block seen in recent EKG in November 2016. All questions answered to patient and family at bedside. I anticipate greater than two History And Physical [address] [place]. [address] NAME: MERYL MYERS JR : 55 STATUS : ADM IN [facility]#: [id number] AGE: 61 ADM/REG DATE : 01/07/17 MR#: [id number] REPORT SERV DATE: 01/08/17 DICTATED BY: DAKOTA MARCELO DATE: 01/07/17 REPORT STATUS : Draft TRANSCRIBED BY: MODRachana DATE: 01/07/17 midnight inpatient stay. DDN/SHANE Dakota Marcelo MD / [id number] CC: MD Aashish Ruiz
--- NOTE | ~2017-01-07 | DS ---
Discharge Summary [address] [place]. [address] NAME: MERYL MYERS JR : 55 STATUS : DIS IN PAT#: [id number] AGE: 61 ADM/REG DATE : 01/07/17 MR#: [id number] REPORT SERV DATE: 01/10/17 DICTATED BY: REAGAN DARBY DATE: 01/09/17 REPORT STATUS : Draft TRANSCRIBED BY: MODRachana DATE: 01/09/17 ADMISSION DATE: 01/07/2017 DISCHARGE DATE: 01/09/2017 DISCHARGE DIAGNOSES: 1. Left pleural effusion, status post thoracentesis with 1.75 L of clear pleural effusion removed. 2. Status post recent robotic CABG about a month ago. 3. Obesity. 4. Likely obstructive sleep apnea. 5. Hypertension. 6. Hyperlipidemia. 7. Right bundle branch block. 8. Chronic elevated right hemidiaphragm. CONSULTS: Cardiothoracic Surgery. PROCEDURES: Left-sided thoracentesis with removal of 1.75 L of clear fluid. HOSPITAL COURSE: This is a 61-year-old gentleman who was admitted to the hospital with shortness of breath. The patient was found to have left-sided pleural effusion. For details please refer to excellent H and P by Dr. Brar. The patient was admitted and was given supportive care. Cardiothoracic Surgery was consulted as well as IR. The patient underwent an ultrasound-guided thoracentesis with significant improvement of his symptoms of dyspnea. Otherwise, the patient's labs and vital signs have remained stable throughout the hospital stay. The patient already has an appointment with Cardiothoracic Surgery which he will follow up as an outpatient. The patient was seen by Cardiothoracic Surgery who felt that the patient was stable for discharge once he has had the thoracentesis. The patient is now being discharged home with close outpatient followup plans. DISPOSITION: Home. DISCHARGE MEDICATIONS: No changes. FOLLOWUP: 1. Please follow up with Dr. Capellan as scheduled, next Wednesday. 2. Please follow up with PCP in the next two to three weeks. A total of 25 minutes spent in coordinating this patient's discharge today. Felipe/SHANE Reagan Darby MD Discharge Summary [facility] [address] [place]. [address] NAME: MERYL MYERS : 55 STATUS : DIS IN PAT#: [id number] AGE: 61 ADM/REG DATE : 01/07/17 MR#: [id number] REPORT SERV DATE: 01/10/17 DICTATED BY: REAGAN DARBY DATE: 01/09/17 REPORT STATUS : Draft TRANSCRIBED BY: MODL DATE: 01/09/17 / [id number] CC: MD SERGO Ruiz
--- NOTE | ~2017-01-07 | CN ---
Consultation Report [facility] [address] [place]. [address] NAME: MERYL MYERS JR : 55 STATUS : ADM IN PAT#: [id number] AGE: 61 ADM/REG DATE : 01/07/17 MR#: [id number] REPORT SERV DATE: 01/08/17 DICTATED BY: ANGELA CAPELLAN JR. DATE: 01/08/17 REPORT STATUS : Draft TRANSCRIBED BY: MODL DATE: 01/08/17 CONSULTATION HISTORY AND PHYSICAL DATE OF CONSULTATION: 01/08/2017 REASON FOR CONSULTATION: Left pleural effusion. BRIEF HISTORY: This is a 61-year-old white male, who is well known to our practice having undergone a robotic assisted CABG, HARRIS to LAD, 01/09/2017. He is approximately one month out from surgery. He had a prolonged hospital stay secondary to respiratory issues to postoperative hypoxemia and he recovered well and is no longer requiring supplemental oxygen at home. He was actually seen in our office approximately a week ago secondary to some neuropathic type pain. Chest x-ray at that time did not show any pleural effusion. He presented to the emergency department secondary to progressive dyspnea with exertion. CTA of the chest showed a [id number] left pleural effusion. We are asked to see him to make recommendations regarding treatment for this. PAST MEDICAL HISTORY: Significant for coronary artery disease, obstructive sleep apnea, for which he is currently being worked up for CPAP machine, obesity, hypertension, and hyperlipidemia. SURGICAL HISTORY: Significant for left knee surgery, robotic CABG, HARRIS to LAD approximately a month ago as well as a TURP and UPPP surgery. ALLERGIES: NO KNOWN DRUG ALLERGIES. SOCIAL HISTORY: He denies any history of alcohol or illicit drug use. He denies any smoking history. He is and retired. FAMILY HISTORY: Significant for father with valvular heart disease. Mother with diabetes mellitus and history of breast cancer and a sister who from complications of pulmonary embolism. HOME MEDICATIONS: Elavil 100 mg p.o. daily, vitamin C 1000 mg p.o. daily, aspirin 81 mg p.o. daily, Lipitor 40 mg p.o. daily, Plavix p.o. daily, Lasix 40 mg p.o. daily, Advil 200 mg as needed, Levaquin 750 mg p.o. daily x7 days, lisinopril 10 mg p.o. daily, metoprolol 25 mg half tablet twice daily, Percocet 5/325 p.r.n., potassium 20 mEq daily. REVIEW OF SYSTEMS: Significant for dyspnea. A complete 12-point review of systems is performed. All other systems are negative except for the abovementioned pertinent positives in the history of present illness. Consultation Report [address] [place]. [address] NAME: MERYL MYERS JR : 55 STATUS : ADM IN PAT#: [id number] AGE: 61 ADM/REG DATE : 01/07/17 MR#: [id number] REPORT SERV DATE: 01/08/17 DICTATED BY: ANGELA CAPELLAN JR. DATE: 01/08/17 REPORT STATUS : Draft TRANSCRIBED BY: SHANE DATE: 01/08/17 PHYSICAL EXAMINATION: GENERAL: This is a 61-year-old white male, who is alert, oriented, in no acute distress. HEENT: Normocephalic, atraumatic. Pupils equal, round, react to light. Ears, nose, and throat without lesion or exudate. NECK: : Supple with no lymphadenopathy, JVD, or bruits. Trachea midline. No obvious goiter. CHEST: Wall is symmetric with no obvious chest wall deformities. CARDIOVASCULAR: Regular rate and rhythm. S1, S2. No murmurs or gallops. ABDOMEN: Soft, nontender, nondistended. Positive bowel sounds in all four quadrants. No hepatosplenomegaly. : The patient voids without difficulty. Further examination was deferred. MUSCULOSKELETAL: No obvious kyphosis or scoliosis. SKIN: Warm, dry, with normal turgor. There is a well-healed left incisions from his recent robotic assisted CABG procedure. NEUROLOGIC: No focal neurological deficits. PSYCHIATRIC: Normal mood and affect. He is pleasant. DATA: CTA of the chest dated 01/07/2017; impression, small pericardial effusion, moderate size, left pleural effusion with atelectasis. Laboratory dated 01/07/2017, sodium 138, potassium 3.8, chloride 102, BUN 14, creatinine 0.87, glucose 98. White blood cell count 11.4, hemoglobin 11.4, hematocrit 34.2, platelet count 293. Protime 15.4, INR 1.2. PROBLEM LIST: 1. Moderate left-sided pleural effusion. 2. Obstructive sleep apnea. 3. Coronary artery disease. 4. Hypertension. 5. Hyperlipidemia. 6. Obesity. IMPRESSION AND PLAN: This is a 61-year-old male, who is status approximately one month post robotic assisted CABG procedure, HARRIS to LAD, who was doing fine postoperatively until earlier this week, when he developed progressive dyspnea and presented to the emergency department. CTA of the chest demonstrated a moderate-sized left pleural effusion. We will go ahead and have Interventional Radiology drain this and send the fluid for cultures. He is respiratory dawson stable and denies any pain. Once the fluid is drained as long he is in satisfactory condition, he is okay to be discharged home over the weekend. We will see him back in one week in our office for a chest x-ray. DICTATED BY: Aide Bernstein NP AM/SHANE Consultation Report [id number] [facility] [place]. [address] NAME: MERYL MYERS JR : 55 STATUS : ADM IN [facility]#: [id number] AGE: 61 ADM/REG DATE : 01/07/17 MR#: [id number] REPORT SERV DATE: 01/08/17 DICTATED BY: ANGELA CAPELLAN JR. DATE: 01/08/17 REPORT STATUS : Draft TRANSCRIBED BY: SHANE DATE: 01/08/17 Angela Capellan Jr., M.D. / [id number] CC: MD Aashish Ruiz
[2017-01-07 17:48] LABS: BASOPHILS 0.2 %; BASOPHILS ABSOLUTE 0.02 10/3/uL (0.0-0.16); EOSINOPHILS 1.2 %; EOSINOPHILS ABSOLUTE 0.14 10/3/uL (0.0-0.53); ER CBC TAT 0 Hrs 05 Mins; HEMATOCRIT 34.2 % (40.0-51.0); HEMOGLOBIN 11.4 g/dL (13.6-17.8); IMMATURE GRANULOCYTES 0.3 %; IMMATURE GRANULOCYTES ABSOLUTE 0.03 10/3/uL (0.0-0.11); LYMPHOCYTES 13.3 %; LYMPHOCYTES ABSOLUTE 1.52 10/3/uL (0.67-4.30); MANUAL DIFF NO %; MEAN CORPUS HGB CONC 33.3 g/dL (32.0-36.0); MEAN CORPUSCULAR HEMOGLOB 28.5 pg (26.0-34.0); MEAN CORPUSCULAR VOLUME 85.5 fL (80-100); MEAN PLATELET VOLUME 8.6 fL (9.2-13.0); MONOCYTES 16.8 %; MONOCYTES ABSOLUTE 1.91 10/3/uL (0.21-1.20); NEUTROPHILS 68.2 %; NEUTROPHILS ABSOLUTE 7.77 10/3/uL (2.02-8.40); PLATELET COUNT 293 10/3/uL (150-400); RBC DISTRIBUTION WIDTH 13.9 % (12.0-16.0); WHITE BLOOD CELLS 11.4 10/3/uL (4.5-10.5)
[2017-01-07 18:04] LABS: CHLORIDE, SERUM 102 MMOL/L (96-112); CO2 (CARBON DIOXIDE) 28 MMOL/L (24-34); CREATININE 0.87 MG/DL (0.70-1.30); GFR AFRICAN AMERICAN 108 ML/MIN (>=60); GFR NON AFRICAN AMERICAN 93 ML/MIN (>=60); GLUCOSE, SERUM 98 MG/DL (60-99); POTASSIUM, SERUM 3.8 MMOL/L (3.5-5.3); SGOT(AST) 26 U/L (5-40); SGPT(ALT) 61 U/L (5-65); SODIUM, SERUM 138 MMOL/L (135-148); TOTAL BILIRUBIN 0.3 MG/DL (0-1.2); TOTAL PROTEIN 7.6 G/DL (6.0-8.5); TROPONIN I <0.02 NG/ML (<0.05)
[2017-01-07 18:05] LABS: A/G RATIO 0.7 (0.7-1.9); ALKALINE PHOSPHATASE 181 U/L (45-117); BUN (BLOOD UREA NITROGEN) 14 MG/DL (6-23); GLOBULIN 4.6 G/DL (2.5-4.1)
[~2017-01-07 21:15] MED LIST changes: +KLOR-CON M2020 MEQ PO; +L40 PO; +LOP25 PO; +PCET PO; +PLAVIX PO; +PRIN10 PO; +VITC500 PO
[2017-01-07] MEDS ORDERED: LEVAQUIN750 MG PO (21:57)
[2017-01-07] MEDS ORDERED: HALF81 PO (21:58)
[2017-01-07] MEDS ORDERED: AMIT100 PO (21:58)
[2017-01-07] MEDS ORDERED: VITC500 PO (21:58)
[2017-01-07] MEDS ORDERED: PCET PO (21:58)
[2017-01-07] MEDS ORDERED: ADVIL PO (21:58)
[2017-01-07] MEDS ORDERED: L40 PO (21:59)
[2017-01-07] MEDS ORDERED: KDUR20 PO (21:59)
[2017-01-07] MEDS ORDERED: PLAVIX PO (21:59)
[2017-01-07] MEDS ORDERED: PRIN10 PO (21:59)
[2017-01-07] MEDS ORDERED: LIPITOR40 PO (21:59)
[2017-01-07] MEDS ORDERED: LOP25 PO (21:59)
[2017-01-08 06:53] LABS: INTERNATIONAL NORMAL RATI 1.2 UNITS (-); PARTIAL THROMBO TIME 35.7 SEC (22.5-37.2); PROTIME (NOT ORD) 15.4 SEC (12.0-14.5)
[2017-01-09 06:59] LABS: BASOPHILS 0.1 %; BASOPHILS ABSOLUTE 0.01 10/3/uL (0.0-0.16); EOSINOPHILS 1.7 %; EOSINOPHILS ABSOLUTE 0.16 10/3/uL (0.0-0.53); HEMATOCRIT 33.6 % (40.0-51.0); HEMOGLOBIN 11.2 g/dL (13.6-17.8); IMMATURE GRANULOCYTES 0.2 %; IMMATURE GRANULOCYTES ABSOLUTE 0.02 10/3/uL (0.0-0.11); LYMPHOCYTES 18.1 %; LYMPHOCYTES ABSOLUTE 1.71 10/3/uL (0.67-4.30); MEAN CORPUS HGB CONC 33.3 g/dL (32.0-36.0); MEAN CORPUSCULAR HEMOGLOB 28.7 pg (26.0-34.0); MEAN CORPUSCULAR VOLUME 86.2 fL (80-100); MEAN PLATELET VOLUME 8.6 fL (9.2-13.0); MONOCYTES 10.3 %; MONOCYTES ABSOLUTE 0.97 10/3/uL (0.21-1.20); NEUTROPHILS 69.6 %; NEUTROPHILS ABSOLUTE 6.58 10/3/uL (2.02-8.40); PLATELET COUNT 308 10/3/uL (150-400); RBC DISTRIBUTION WIDTH 14.2 % (12.0-16.0); WHITE BLOOD CELLS 9.5 10/3/uL (4.5-10.5)
[2017-01-09 07:04] LABS: MANUAL DIFF NO %
[2017-01-09 07:16] LABS: BUN (BLOOD UREA NITROGEN) 16 MG/DL (6-23); CALCIUM, SERUM 9.2 MG/DL (8.5-10.4); CHLORIDE, SERUM 102 MMOL/L (96-112); CO2 (CARBON DIOXIDE) 30 MMOL/L (24-34); CREATININE 0.86 MG/DL (0.70-1.30); GFR AFRICAN AMERICAN 108 ML/MIN (>=60); GFR NON AFRICAN AMERICAN 94 ML/MIN (>=60); GLUCOSE, SERUM 115 MG/DL (60-99); POTASSIUM, SERUM 3.9 MMOL/L (3.5-5.3); SODIUM, SERUM 142 MMOL/L (135-148)
== END 2017-01-09 13:53 | disposition home or self-care (01) | DRG 187 ==
LOC: ER 21:15 → 6NO 23:24
PROVIDERS: Emergency Medicine; Internal Medicine; Student in an Organized Health Care Education/Training Program
PROC: 0W9B3ZZ Drainage of Left Pleural Cavity, Percutaneous Approach (ICD-10-PCS; principal; 2017-01-08)
DX: J90 Pleural effusion, not elsewhere classified (principal); Z68.42 Body mass index [BMI] 45.0-49.9, adult; I10 Essential (primary) hypertension; J98.6 Disorders of diaphragm; I25.10 Atherosclerotic heart disease of native coronary artery without angina pectoris; E78.5 Hyperlipidemia, unspecified; E66.9 Obesity, unspecified; I45.10 Unspecified right bundle-branch block; G47.33 Obstructive sleep apnea (adult) (pediatric); Z95.1 Presence of aortocoronary bypass graft; Z83.3 Family history of diabetes mellitus
CPT/HCPCS: 32555; 71010; 71020; 71275; 80048; 80053; 83880; 84484; 85025; 85610; 85730; 87015; 87040; 87070; 87075; 87102; 87116; 87205; 93005; 94640; 99285; A9270-GY; Q9967